=== PATIENT | male | born 2000 | race Two or more races ===

== ENCOUNTER 2020-07-01 08:55 | Emergency (ER) | payer OTHER, SELFPAY ==
--- NOTE | ~2020-07-01 | CT_ITS ---
EXAMINATION: CT abdomen pelvis w con DATE: 07/01/2020 10:27 INDICATION: Epigastric abdominal pain. TECHNIQUE: Computed tomography (CT) of the abdomen and pelvis was performed with 100 mL Omnipaque 350 intravenous contrast. Automated exposure control and iterative reconstruction technique were employe d. The dose-length product was 345.17 mGy-cm. COMPARISON: None. FINDINGS: The visualized portions of the lung bases are clear without pneumonia or pleural effusion. The heart size is normal. No pericardial effusion. The liver, gallbladder, spleen, pancreas, adrenal glands, and kidneys are normal. There are no dilated loops of bowel. The appendix is normal. There ar e no pathologically enlarged lymph nodes. There is no free intraperitoneal fluid. There is mild lumba r spondylosis. IMPRESSION: 1. No etiology for the patient's symptoms. Reviewed, dictated and finalized at location A. [facility]
[2020-07-01 09:04] VITALS: BP 144/57; PULSE 67; RESP 18; TEMP 36.3; O2SAT 100
--- NOTE | 2020-07-01 09:33 | ED.ABDPAIN ---
HPI - Abdominal Pain General Chief Complaint: Abdominal Pain <Tamica Sloan PA-C - Last Filed: 07/01/20 10:51> Stated Complaint: abd pain <Tamica Sloan PA-C - Last Filed: 07/01/20 10:51> Time Seen by Provider: 07/01/20 09:08 <Tamica Sloan PA-C - Last Filed: 07/01/20 10:51> Source: patient <ANGELIQUE Barros Last Filed: 07/01/20 10:51> Mode of arrival: ambulatory <Tamica Sloan PA-C - Last Filed: 07/01/20 10:51> Limitations: no limitations <Tamica Sloan PA-C - Last Filed: 07/01/20 10:51> History of Present Illness HPI narrative: This is a 20 year old male that presents to the ER for upper abdominal pain x5 days. Reports the pain is sharp and intermittent. No known alleviating or exacerbating factors. He has taken Advil and ibuprofen with little relief. Denies fever, chest pain, shortness of breath, or vomiting. <Tamica Sloan PA-C - Last Filed: 07/01/20 10:51> Related Data Home Medications: Home Medications Medication Instructions Recorded Confirmed prednisone 07/01/20 <Tamica Sloan PA-C - Last Filed: 07/01/20 10:51> Allergies/Adverse Reactions: Allergies Allergy/AdvReac Type Severity Reaction Status Date / Time No Known Allergies Allergy Verified 07/01/20 09:11 <Tamica Sloan PA-C - Last Filed: 07/01/20 10:51> Review of Systems Review of Systems: Narrative: CONSTITUTIONAL: Denies fever GASTROINTESTINAL: Reports abdominal pain. Denies nausea, vomiting, or diarrhea. <Tamica Sloan PA-C - Last Filed: 07/01/20 10:51> All systems reviewed & are unremarkable except as noted in HPI and below <Tamica Sloan PA-C - Last Filed: 07/01/20 10:51> [facility] Social History Social History: Social History (Updated 07/01/20 @ 09:35 by Tamica Sloan PA-C) Alcohol intake: current Substance use: current Substance use type: marijuana Gender identity (if verbalized by the patient): Male <Tamica Sloan PA-C - Last Filed: 07/01/20 10:51> Exam Narrative: Exam Narrative: GENERAL: Well-appearing, well-nourished, and in no acute distress. HEAD: Normocephalic, atraumatic. EYES: EOMI. CHEST: Clear to auscultation. No respiratory distress. No wheezes rales or rhonchi HEART: Regular rate and rhythm. No murmur heard. Normal peripheral pulses. ABDOMEN: Soft, nondistended, normal active bowel sounds. Mild tenderness to palpation in epigastrium, without guarding EXTREMITIES: Normal range of motion. No edema. SKIN: Warm, dry, no rash. NEURO: No focal deficits. Alert and oriented x3. PSYCH: Normal mood and affect <Tamica Sloan PA-C - Last Filed: 07/01/20 10:51> Course Vital Signs Vital signs: Vital Signs Temperature 97.3 F L 07/01/20 09:04 Pulse Rate 67 07/01/20 09:04 Respiratory Rate 18 07/01/20 09:04 Blood Pressure 144/57 H 07/01/20 09:04 Pulse Oximetry 100 07/01/20 09:04 Temperature 97.3 F L 07/01/20 09:04 Pulse Rate 63 07/01/20 10:55 Respiratory Rate 18 07/01/20 10:55 Blood Pressure 124/59 L 07/01/20 10:55 Pulse Oximetry 98 07/01/20 10:55 <Tamica Sloan PA-C - Last Filed: 07/01/20 10:51> Vital Signs Temperature 97.3 F L 07/01/20 09:04 Pulse Rate 67 07/01/20 09:04 Respiratory Rate 18 07/01/20 09:04 Blood Pressure 144/57 H 07/01/20 09:04 Pulse Oximetry 100 07/01/20 09:04 Temperature 97.3 F L 07/01/20 09:04 Pulse Rate 63 07/01/20 10:55 Respiratory Rate 18 07/01/20 10:55 Blood Pressure 124/59 L 07/01/20 10:55 Pulse Oximetry 98 07/01/20 10:55 <Mirna Berry MD - Last Filed: 07/01/20 17:11> MDM - Abdominal Pain MDM Narrative Medical decision making narrative: Patient presents to the ER for abdominal pain over the last 5 days. He is afebrile and nontoxic-appearing. CBC with mild leukocytosis to 10.4. Metabolic panel and lipase without concerning findings. UA significant for hematuria, no signs for infection.
[2020-07-01] MEDS: PANTOPRAZOLE SODIUM IV 40 MG VIAL IV PUSH (09:40)
[2020-07-01 09:49] LABS: Basophils Percent Auto 0.2 % (0.2-1.2); Hematocrit 43.3 % (42.0-52.0); Hemoglobin 14.2 g/dL (14.0-18.0); Immature Granulocyte Absolute 0.04 K/mm3 (0.00-0.031); Immature Granulocyte Percent A 0.4 % (0-0.5); Lymphocytes Absolute Auto 0.91 K/mm3 (0.9-3.2); Lymphocytes Percent Auto 8.7 % (18.3-44.2); Mean Corpuscular HGB Conc 32.8 g/dl (32-36); Mean Corpuscular Volume 82.5 fl (80-100); Mean Platelet Volume 10.7 fl (7.4-10.4); Monocytes Absolute Auto 0.1 K/mm3 (0.1-0.6); Monocytes Percent Auto 1.1 % (2.6-8.5); Neutrophils Absolute Auto 9.3 K/mm3 (1.3-6.7); Neutrophils Percent Auto 89.6 % (45.5-73.1); Platelet Count Result 282 k/mm3 (150-375); Red Blood Count 5.25 M/mm3 (4.6-6.20); Red Cell Distribution Width 12.5 % (11.5-14.5); White Blood Count 10.4 K/mm3 (4.5-10.0)
[2020-07-01 09:56] LABS: Add Urine Microscopic? YES; Appearance Urine Clear (Clear); Bacteria Urine Trace /hpf; Bilirubin Urine Negative (Negative); Blood Urine 2+ (Negative); Color Urine Yellow (Yellow); Glucose Urine UA Negative (Negative); Ketones Urine Negative (Negative); Leukocyte Esterase Ur Negative LEU/UL (Negative); Mucus Urine Rare /lpf; Nitrate Urine Negative (Negative); Protein Urine 2+ mg/dL (Negative); RBC Urine >75 /hpf (0-2); Squamous Epithelial Cell Urine Rare /hpf (Few); Urobilinogen Urine Negative mg/dL (<2.0); WBC Urine 0-3 /hpf
[2020-07-01 10:01] LABS: Alanine Aminotransferase 14 U/L (4-50); Albumin Level 4.4 g/dL (3.5-5.1); Alkaline Phosphatase 91 U/L (38-126); Anion Gap 6 mmol/L (8-16); Aspartate Amino Transferase 25 U/L (17-59); Bilirubin,Total 0.6 mg/dL (0.2-1.3); Blood Urea Nitrogen 12 mg/dL (9-20); Calcium 9.3 mg/dL (8.4-10.2); Carbon Dioxide 32 mmol/L (22-30); Chloride 104 mmol/L (98-107); Estimated CRCL calculation 122 ml/min; Estimated Glomerular Filt Rate > 60; Glucose 118 mg/dL (75-110); Lipase 81 U/L (23-300); Potassium 4.3 mmol/L (3.4-5.0); Sodium 142 mmol/L (137-145)
[2020-07-01 10:55] VITALS: BP 124/59; PULSE 63; RESP 18; O2SAT 98
== END 2020-07-01 11:00 | disposition home or self-care (01) ==
PROVIDERS: Physician Assistant; Emergency Provider General Practice
DX: K29.00 Acute gastritis without bleeding (principal); R31.21 Asymptomatic microscopic hematuria
CPT/HCPCS: 36415; 74177; 80053; 81001; 83690; 85025; 96365; 96375; 99284; C9113; J0131; Q9967

== ENCOUNTER 2020-09-22 10:12 | Emergency (ER) | payer OTHER, SELFPAY ==
[2020-09-22 10:19] VITALS: BP 140/71; PULSE 68; RESP 16; TEMP 36.4; O2SAT 100
--- NOTE | 2020-09-22 10:31 | ED.URI ---
HPI - URI/Sore Throat General Chief Complaint: Upper Respiratory Infection Stated Complaint: Sore Throat Time Seen by Provider: 09/22/20 10:25 Source: patient and RN notes reviewed Mode of arrival: ambulatory Limitations: no limitations History of Present Illness HPI Narrative: 20-year-old male presents to the [facility] with complaints of a sore throat he describes as burning for 3 days. Denies any fevers, nausea, cough, vomiting or diarrhea. No chest pain or abdominal pain. States it hurts more when he swallows. Has had chills without fever. MD elicited complaint: sore throat Related Data Allergies Allergy/AdvReac Type Severity Reaction Status Date / Time No Known Allergies Allergy Verified 09/22/20 10:33 Review of Systems Review of Systems: All systems reviewed & are unremarkable except as noted in HPI and below Constitutional: Constitutional: Reports as per HPI, Reports chills and Denies fever(s) Eyes: Eyes: Reports no additional eye complaints ENT: Reports as per HPI and Reports sore throat Cardiovascular: Cardiovascular: Reports no additional cardiovascular complaints and Denies chest pain Respiratory: Respiratory: Reports no additional respiratory complaints, Denies cough, Denies dyspnea and Denies wheezing Gastrointestinal: Gastrointestinal: Reports no additional gastrointestinal complaints, Denies abdominal pain, Denies nausea and Denies vomiting Musculoskeletal: Musculoskeletal: Reports no additional musculoskeletal complaints, Denies back pain, Denies myalgias, Denies joint swelling and Denies muscle cramps Integumentary/Breasts: Skin/Breast: Reports system reviewed and no additional complaints, except as docu and Denies rash Neurologic: Reports system reviewed and no additional complaints, except as documented, Denies dizziness, Denies syncope, Denies headache(s), Denies numbness and Denies weakness Psychiatric: Psychiatric: Reports no additional psychiatric complaints PMFSH Social History Social History Alcohol intake: current Substance use: current Substance use type: marijuana Gender identity (if verbalized by the patient): Male Comments At the time of my signature, I reviewed and agree with the nursing past medical, surgical, social, and family history. There is no relevant family history pertinent to the patient complaint. Exam Const: General: healthy appearing, no acute distress and alert Nutritional Appearance: well nourished Orientation/consciousness: patient oriented x3 Limitations: no limitations HENMT: Head: normal to inspection Ears: external ears normal and TM's normal bilaterally General nose exam: Normal nares present and no nasal discharge noted Face and sinus: normal facial exam and sinuses nontender Mouth: Yes moist mucous membranes Throat: uvula midline Other: Tonsils enlarged, red Eyes: Pupils: Equal, round and reactive pupils present Neck: Neck: normal visual inspection, no lymphadenopathy, no meningeal signs and no lymphadenopathy noted Chest: Chest palpation & inspection: normal inspection of the chest Resp: Effort & Inspection: normal respiratory effort and no use of accessory muscles Auscultation: clear to auscultation bilaterally, no crackles, no rales, no rhonchi and no wheezes Cardio: Rate: regular rate Rhythm: regular rhythm Back/Spine/Pelvis: Back: no CVA tenderness Skin: General skin exam: normal color Rashes: no rashes Neuro: General: patient oriented x3, moves all extremities, no meningeal signs and no focal motor deficits Speech: normal speech Gait exam (Neuro): Normal gait present Extrem: General: normal to inspection Psych: Appearance: grossly normal and well kempt Mental Status: mental status grossly normal Affect: normal affect Attitude: cooperative Thought content: Yes Normal thought content present Course Vital Signs Vital signs: Vital Signs Temperature 97.5 F L 09/22/20
== END 2020-09-22 10:41 | disposition home or self-care (01) ==
PROVIDERS: Emergency Provider Nurse Practitioner
DX: J02.0 Streptococcal pharyngitis (principal)
CPT/HCPCS: 87880; 99213; G0463

== ENCOUNTER 2020-12-10 13:25 | Emergency (ER) | payer OTHER, SELFPAY ==
[2020-12-10 13:40] VITALS: BP 110/55; PULSE 78; RESP 16; TEMP 37; O2SAT 98
--- NOTE | 2020-12-10 13:58 | ED.URI ---
HPI - URI/Sore Throat General Chief Complaint: Upper Respiratory Infection Stated Complaint: sob/headache Time Seen by Provider: 12/10/20 13:55 Source: patient and RN notes reviewed Mode of arrival: ambulatory Limitations: no limitations History of Present Illness HPI Narrative: 20-year-old male presents with concern for intermittent shortness of breath, headache. Reports when he does every day activities it feels hard to take a full breath. He denies any chest pain, cough, wheezing. Denies history of asthma. Denies rhinorrhea, nasal congestion, sore throat, body aches, chills, sweats, fever. Reports he needs a Covid test for work. MD elicited complaint: cough Related Data Home Medications Medication Instructions Recorded Confirmed No Home Medications 12/10/20 12/10/20 Allergies Allergy/AdvReac Type Severity Reaction Status Date / Time No Known Allergies Allergy Verified 09/22/20 10:33 Review of Systems Review of Systems: CONSTITUTIONAL: Denies malaise, chills, sweats, or fever. EYES: Denies visual changes, redness, or discharge. ENT: Denies rhinorrhea, congestion, sinus pain, otalgia and sore throat. CARDIOVASCULAR: Denies chest pain, palpitations, or edema. RESPIRATORY: Reports cough. Reports dyspnea. GASTROINTESTINAL: Denies abdominal pain, nausea, vomiting, diarrhea SKIN: Denies rash or itching. MUSCULOSKELETAL: Denies myalgia. NEUROLOGIC: Reports headache. All systems reviewed & are unremarkable except as noted in HPI and below PMFSH Social History Social History Alcohol intake: current Substance use: current Substance use type: marijuana Gender identity (if verbalized by the patient): Male Comments At time of signature, agree with nursing past medical, surgical, social and family history. There is no relevant family history pertinent to the presenting complaint Exam Narrative: GENERAL: Well-appearing, well-nourished, and in no acute distress. HEAD: Normocephalic EYES: PERRLA, conjunctivae clear ENT: Nares clear. Mucous membranes moist. TM pearly will with sharp light reflex bilaterally; no tragal tenderness. Oropharynx not erythematous without lesions. Tonsils not enlarged and without exudate, no drooling, no hoarseness, no trismus, uvula midline. NECK: Supple. No lymphadenopathy CHEST: Clear to auscultation, breath sounds equal. No wheezing, rhonchi, rales, or stridor. No respiratory distress, speaks in full sentences. HEART: Regular rate and rhythm. No murmur heard. SKIN: Warm, dry, no rash. NEURO: Alert and oriented x3. PSYCH: Normal mood and affect Course Course Emergency Course: Patient is aware of diagnosis, understands and agrees to treatment plan. Anticipatory guidance given. Patient agrees to follow-up as directed and is aware of reasons to seek care at the emergency department. Portions of this record may have been created with voice recognition software Vital Signs Vital signs: Vital Signs Temperature 98.6 F 12/10/20 13:40 Pulse Rate 78 12/10/20 13:40 Respiratory Rate 16 12/10/20 13:40 Blood Pressure 110/55 L 12/10/20 13:40 Pulse Oximetry 98 12/10/20 13:40 Temperature 98.6 F 12/10/20 13:40 Pulse Rate 78 12/10/20 13:40 Respiratory Rate 16 12/10/20 13:40 Blood Pressure 110/55 L 12/10/20 13:40 Pulse Oximetry 98 12/10/20 13:40 Reviewed. MDM - URI/Sore Throat MDM Narrative Medical decision making narrative: Differential diagnosis considered: Cunningham virus, strep pharyngitis, allergic rhinitis, upper respiratory tract infection, sinusitis, rhinosinusitis, nasopharyngitis. viral pharyngitis, otitis media, otitis externa, pneumonia, bronchitis, viral cough syndrome, viral syndrome, and influenza. Exam findings show no acute concerns or changes; patient is non-toxic appearing and is in no distress. Patient is appropriate for outpatient treatment and follow-up. Lab Data Attestation: I reviewed the p
[2020-12-11 20:10] LABS: SARS-CoV-2 RNA PCR Negative
== END 2020-12-10 14:14 | disposition home or self-care (01) ==
PROVIDERS: Emergency Provider Nurse Practitioner
DX: R06.02 Shortness of breath (principal); Z20.822 Contact with and (suspected) exposure to COVID-19
CPT/HCPCS: 87426; 99213; C9803; G0463; U0003; U0005

== ENCOUNTER 2021-08-28 23:37 | Emergency (ER) | payer OTHER, SELFPAY ==
[2021-08-28 23:41] VITALS: BP 153/73; PULSE 70; RESP 17; TEMP 36.1; O2SAT 98
--- NOTE | 2021-08-29 00:34 | PC.NURSE ---
Called patient to go to room, no answer and not seen in the waiting room.
--- NOTE | 2021-08-29 00:51 | PC.NURSE ---
Patient called again for room. No answer and not seen in waiting room.
== END 2021-08-29 00:51 | disposition left against medical advice (07) ==
LOC: ANHED 08-29 00:54
DX: S61.011A Laceration without foreign body of right thumb without damage to nail, initial encounter (principal)
CPT/HCPCS: 99199

== ENCOUNTER 2021-12-01 15:12 | Outpatient (CLI) | payer OTHER, SELFPAY ==
--- NOTE | 2021-12-04 15:36 | P.PCNHOL_ITS ---
Holter/Event Monitor Holter/Event Monitor Date of procedure: 12/04/21 Holter/Event Procedure: 48 Hr Holter Monitor Diagnosis: Palpitations Indications: Palpitations Image/Tracing Quality: Acceptable Finding: Underlying rhythm is sinus with an average heart rate of 69 beats per minute minimum 42 beats per minute occurring at 2:18 a.m. and maximum 152 beats per minute occurring at 7:10 a.m.. There is no ventricular ectopy noted throughout the study. No atrial fibrillation, atrial flutter, prolonged pauses or high- grade AV blocks. Rare premature atrial contractions totaling 35 with 1 atrial pair noted. Longest RR interval 1.6 seconds occurring at 1:49 a.m.. No symptoms of return to in conjunction with this study. Conclusion: Underlying sinus rhythm with no ventricular ectopy and rare premature atrial contractions. No prolonged pauses, high-grade AV blocks, atrial fibrillation or atrial flutter. No symptoms returned in conjunction with the study.
== END 2021-12-01 15:13 | disposition home or self-care (01) ==
LOC: ANHCARD 15:14
PROVIDERS: PCP Physician Assistant; Visit Provider Physician Assistant
DX: R00.2 Palpitations (principal)
CPT/HCPCS: 93225; 93226

== ENCOUNTER 2022-03-08 15:52 | Emergency (ER) | payer OTHER, SELFPAY ==
[2022-03-08 15:58] VITALS: BP 136/57; PULSE 74; RESP 16; TEMP 36.6; O2SAT 99
--- NOTE | 2022-03-08 19:21 | PC.NURSE ---
no answer at triage
== END 2022-03-08 19:21 | disposition left against medical advice (07) ==
LOC: ANHED 19:48
PROVIDERS: Emergency Provider Emergency Medicine; PCP Physician Assistant
DX: Z11.3 Encounter for screening for infections with a predominantly sexual mode of transmission (principal)
CPT/HCPCS: 99199

== ENCOUNTER 2024-01-17 19:46 | Emergency (ER) | payer OTHER, SELFPAY ==
[2024-01-17 19:53] VITALS: BP 140/83; PULSE 77; RESP 16; TEMP 37; O2SAT 100
--- NOTE | 2024-01-17 20:26 | ED.BACK ---
HPI - Back Pain/Injury General Chief Complaint: Back Pain/Injury Stated Complaint: Headaches/Back Pain Time Seen by Provider: 01/17/24 19:55 Source: patient Mode of arrival: ambulatory Limitations: no limitations History of Present Illness HPI Narrative: Reid is a 23-year-old male patient presenting to the clinic today with complaints of left-sided upper back pain, left neck pain, and headache this been going on for the past few days. He has intermittently taken ibuprofen for his pain however he says is not improving and he is waking up with headaches. 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 Related Data Allergies Allergy/AdvReac Type Severity Reaction Status Date / Time No Known Allergies Allergy Verified 01/17/24 19:50 Review of Systems Review of Systems: Pertinent positives per HPI. Patient denies any fever, chills, rash, headache, visual changes, dizziness, cough, runny nose, sore throat, shortness of breath, chest pain, palpitations, nausea, vomiting, diarrhea, constipation, abdominal pain, or any urinary issues. PMFSH Social History Social History Alcohol intake: current Substance use: current Substance use type: marijuana Gender identity (if verbalized by the patient): Male Comments At the time of my signature, I reviewed and agree with the nursing past medical, surgical, social, and family history. There is no relevant family history pertinent to the patient complaint. Exam Narrative: General: Well-developed, well nourished, in no apparent distress Head: Normocephalic, atraumatic Eyes: Pupils equally round and reactive to light bilaterally, EOM intact, sclera and conjunctive clear, no discharge, lids normal Ears: TMs intact and clear, ear canals clear, no drainage, grossly hearing normal. Nose: Nares patent, no discharge, no inflammation, no sinus tenderness. Mouth: Oropharynx without lesions or masses, good dentition, MMM. Neck: Supple, trachea midline, no enlargement of anterior or posterior cervical nodes, no thyroid masses or goiter palpable. No meningeal signs Cardio: Regular rate and rhythm, s1 and s2 normal, no murmur appreciated. Resp: Clear to auscultation bilaterally anteriorly and posteriorly, no rhonchi, rales, wheezing or rubs Musculoskeletal: No deformity, tender to palpation over the left rhomboid musculature, over the left posterior lateral cervical musculature, and feeling as though there was a tight band around his forehead, grossly normal range of motion, muscle strength strong and equal, peripheral pulse strong, no edema, no cyanosis, normal gait and station Course Course Emergency Course: Portions of this record may have been created with voice recognition software. Level of Care: Express Care Visit Vital Signs Vital signs: Vital Signs Temperature 37.0 C 01/17/24 19:53 Pulse Rate 77 01/17/24 19:53 Respiratory Rate 16 01/17/24 19:53 Blood Pressure 140/83 01/17/24 19:53 Pulse Oximetry 100 01/17/24 19:53 Oxygen Delivery Room Air 01/17/24 19:53 Temperature 37.0 C 01/17/24 19:53 Pulse Rate 77 01/17/24 19:53 Respiratory Rate 16 01/17/24 19:53 Blood Pressure 140/83 01/17/24 19:53 Pulse Oximetry 100 01/17/24 19:53 Oxygen Delivery Room Air 01/17/24 19:53 Vital signs reviewed MDM - Back Pain/Injury MDM Narrative Medical decision making narrative: At the time of visit patient is resting comfortably on the exam table. Patient appears to be nontoxic. Plan: I suspect patient has muscle strain with a tension headache. Prescription for naproxen and baclofen was sent to the pharmacy. Supportive measures were discussed with the patient and they voiced understanding discharge instructions and agrees to treatment plan. Return precautions reviewed Differential Diagnosis Differential diagnosis: Likely thoracic back pain and other (Muscle strain, te
== END 2024-01-17 20:07 | disposition home or self-care (01) ==
PROVIDERS: Emergency Provider Nurse Practitioner Family
DX: S29.012A Strain of muscle and tendon of back wall of thorax, initial encounter (principal); X58.XXXA Exposure to other specified factors, initial encounter; R51.9 Headache, unspecified; M54.2 Cervicalgia; F12.90 Cannabis use, unspecified, uncomplicated
CPT/HCPCS: 99213; G0463

== ENCOUNTER 2024-03-20 09:43 | Emergency (ER) | payer OTHER, SELFPAY ==
[2024-03-20 09:53] VITALS: BP 126/52; PULSE 74; RESP 18; TEMP 37; O2SAT 100
[2024-03-20 10:24] LABS: Add Urine Microscopic? YES; Appearance Urine Turbid (Clear); Bacteria Urine None Seen /hpf; Blood Urine 2+ (Negative); Color Urine Red (Yellow); Ketones Urine Negative (Negative); Leukocyte Esterase Ur 2+ LEU/UL (Negative); Need Manual Microscopic Reviewed; Specific Grav Ur 1.016 (1.001-1.035); Squamous Epithelial Cell Urine None Seen /hpf (Few); Urobilinogen Urine 0.2 mg/dL (<2.0); WBC Urine 21-50 /hpf (0-3)
[2024-03-20 10:25] LABS: Glucose Urine UA Negative (Negative); RBC Urine >100 /hpf (0-2)
--- NOTE | 2024-03-20 10:34 | ED_ITS ---
HPI - Male Genitourinary General Chief complaint: Urogenital-Male Stated complaint: hematuria Time Seen by Provider: 03/20/24 10:33 Source: patient Mode of arrival: ambulatory Limitations: no limitations History of Present Illness [facility] Narrative: This is a 23-year-old male who presents to the ED for chief complaint of hematuria x4 days. Reports bright red blood passing through the urine. Patient reports he went to urgent care and had urine culture drawn but states there was no growth. No history of kidney stones. States he is really not having any dysuria, abdominal or flank pain. Denies specific concern for STD as he has not had sexual intercourse in 9 months. Related Data Allergies Allergy/AdvReac Type Severity Reaction Status Date / Time No Known Allergies Allergy Verified 03/20/24 09:43 Review of Systems Review of Systems: All systems as dictated in [facility] Social History Social History Alcohol intake: current Substance use: current Substance use type: marijuana Gender identity (if verbalized by the patient): Male Exam Narrative: GENERAL: Well-appearing, well-nourished, and in no acute distress. HEAD: Normocephalic, atraumatic. EYES: PERRLA and EOMI. ENT: Nares clear, no rhinorrhea or epistaxis. Mucous membranes moist. Oropharynx without tonsillar hypertrophy exudate or other lesions. NECK: Supple. No adenopathy or masses. CHEST: No respiratory distress. Clear to auscultation. No wheezes rales or rhonchi HEART: Regular rate and rhythm. No murmur heard. Normal peripheral pulses. ABDOMEN: Soft, nontender, nondistended, normal active bowel sounds. MSK: Normal range of motion. No edema. SKIN: Warm, dry, no rash. NEURO: Alert and oriented x4. No focal deficits. PSYCH: Normal mood and affect. Course Vital Signs Vital signs: Vital Signs Temperature 98.6 F 03/20/24 09:53 Pulse Rate 74 03/20/24 09:53 Respiratory Rate 18 03/20/24 09:53 Blood Pressure 126/52 L 03/20/24 09:53 Pulse Oximetry 100 03/20/24 09:53 Oxygen Delivery Room Air 03/20/24 09:53 Temperature 98.6 F 03/20/24 09:53 Pulse Rate 74 03/20/24 09:53 Respiratory Rate 18 03/20/24 09:53 Blood Pressure 126/52 L 03/20/24 09:53 Pulse Oximetry 100 03/20/24 09:53 Oxygen Delivery Room Air 03/20/24 09:53 MDM - Male Genitourinary MDM Narrative Medical decision making narrative: This is a 23-year-old male who presents to the ED for chief complaint of hematuria x4 days. No urinary retention. Vitals are normal.. Exam is benign overall. No flank tenderness or abdominal pain. Lab work regarding CBC, CMP are unremarkable. Urinalysis does show 2+ leuk esterase, greater than 100 RBCs, 21-50 whites. No concerns for STDs today, but willing to have labs drawn. RPR, HIV, Trichomonas are negative. Chlamydia and gonorrhea unable to be tested due to the hematuria. Patient is feeling fine on re-evaluation. He feels ready to go home and will follow-up with urology on this painless hematuria. Patient will be discharged in stable condition. Supportive measures discussed and return precautions given. Patient is understanding and agreeable with plan for discharge with PCP/urology follow-up. Lab Data 03/20/24 11:12 03/20/24 11:12 Labs: Lab Results 03/20/24 03/20/24 Range/Units 10:00 11:12 WBC 5.2 (4.5-10.0) K/mm3 RBC 5.25 (4.6-6.20) M/mm3 Hgb 14.6 (14.0-18.0) g/dL Hct 44.6 (42.0-52.0) % MCV 85.0 (80-100) fl MCH 27.8 (26-34) pg MCHC 32.7 (32-36) g/dl RDW 13.9 (11.5-14.5) % Plt Count 214 (150-375) k/mm3 MPV 10.8 H (7.4-10.4) fl Immature Gran % (Auto) 0.2 (0-0.5) % Neut % (Auto) 68.5 (45.5-73.1) % Lymph % (Auto) 24.9 (18.3-44.2) % [place] % (Auto) 5.8 (2.6-8.5) % Eos % (Auto) 0.4 (0-4.4) % Baso % (Auto) 0.2 (0.2-1.2) % Lymph # (Auto) 1.29 (0.9-3.2) K/mm3 [place] # (Auto) 0.3 (0.1-0.6) K/mm3 Eos # (Auto) 0.0 (0-0.3) K/mm3 Baso # (Auto) 0.0 (0.0-0.1) K/mm3 Abs Immat Gran (auto) 0.01 (0.00-0.031) K/mm3 Absolute Neuts (auto) 3.6 (1.3-6.7) K/mm3 Absolute Nucleated RBC 0.000 (0.0-0.012) K/mm3 Nucleated RBC % 0.0 (0.0-0.2) % PT 14.3 (11.1-14.7) Seconds INR 1.1 APTT 29.9 (22.3-36.8) Seconds Sodium 141 (137-145) mmol/L Potassium 4.7 (3.4-5.0) mmol/L Chloride 106 (98-107) mmol/L Carbon Dioxide 31 H (22-30) mmol/L Anion Gap 4 (4-12) mmol/L BUN 16 (9-20) mg/dL Creatinine 0.90 (0.7-1.3) mg/dL Estim Creat Clear Calc 123 ml/min Estimated GFR > 60 (59 - ) Glucose 84 (65-110) mg/dL Calcium 9.2 (8.4-10.2) mg/dL Total Bilirubin 0.6 (0.2-1.3) mg/dL AST 51 (17-59) U/L ALT 40 (6-50) U/L Alkaline Phosphatase 68 (38-126) U/L Total Protein 8.0 (6.3-8.2) g/dL Albumin 4.6 (3.5-5.1) g/dL Urine Color Red H (Yellow) Urine Appearance Turbid H (Clear) Urine pH 6.0 (5.0-9.0) Ur Specific [place] 1.016 (1.001-1.035) Urine Protein TNP Urine Glucose (UA) Negative (Negative) mg/dL Urine Ketones Negative (Negative) mg/dL Ur Blood (Man) 2+ H (Negative) Urine Nitrate TNP Urine Bilirubin TNP Urine Urobilinogen 0.2 (<2.0) mg/dL Add Ur Microanalysis Reviewed Leukocyte Esterase Rfl 2+ H (Negative) JESUS/UL Urine RBC >100 H (0-2) /hpf Urine WBC 21-50 H (0-3) /hpf Ur Squamous Epith Cells None seen (Few) /hpf Urine Bacteria None seen /hpf Urine Casts 3-5 RPR Non-reactive (NonReactive) HIV 1&2 Ab/P24 Ag 4thGn Negative (Negative) T. vaginalis (PCR) Not detected (NOT DETECTE) Discharge Plan Discharge Clinical Impression: Urinary tract infection Qualifiers: Urinary tract infection type: acute cystitis Hematuria presence: with hematuria Qualified Code(s): N30.01 - Acute cystitis with hematuria Patient Disposition: Home, Self-Care Condition: Stable Instructions: Antibiotic Form, Urinary Tract Infection in Men (ED) Additional Instructions: Your exam today does show concern for possible UTI. Please take antibiotics as prescribed. Follow-up with urology for closer evaluation on the blood in the urine. If you have any new or worsening symptoms please return to the ER for further evaluation. Prescriptions: New ciprofloxacin HCl [Cipro] 500 mg tablet 500 mg PO Q12H Qty: 14 0RF No Action baclofen 10 mg tablet 10 mg PO TID PRN (Reason: muscle spasm) 7 Days Qty: 21 0RF naproxen 500 mg tablet 500 mg PO BID PRN (Reason: pain) 7 Days Qty: 14 0RF Follow-up/Referrals: Young Nicole MD [Physician] - PHYSICIAN,NET TECHNICAL ARCHITECT [Primary Care Provider] - Stand Alone Forms: Work/School Release IP Time of Disposition: 12:05
[2024-03-20 11:25] LABS: Basophils Percent Auto 0.2 % (0.2-1.2); Eosinophils Percent Auto 0.4 % (0-4.4); Hematocrit 44.6 % (42.0-52.0); Hemoglobin 14.6 g/dL (14.0-18.0); Immature Granulocyte Absolute 0.01 K/mm3 (0.00-0.031); Immature Granulocyte Percent A 0.2 % (0-0.5); Lymphocytes Absolute Auto 1.29 K/mm3 (0.9-3.2); Lymphocytes Percent Auto 24.9 % (18.3-44.2); Mean Corpuscular HGB Conc 32.7 g/dl (32-36); Mean Corpuscular Hemoglobin 27.8 pg (26-34); Mean Platelet Volume 10.8 fl (7.4-10.4); Monocytes Absolute Auto 0.3 K/mm3 (0.1-0.6); Monocytes Percent Auto 5.8 % (2.6-8.5); Neutrophils Absolute Auto 3.6 K/mm3 (1.3-6.7); Neutrophils Percent Auto 68.5 % (45.5-73.1); Platelet Count Result 214 k/mm3 (150-375); Red Blood Count 5.25 M/mm3 (4.6-6.20); Red Cell Distribution Width 13.9 % (11.5-14.5); White Blood Count 5.2 K/mm3 (4.5-10.0)
[2024-03-20 11:38] LABS: INR 1.1; Prothrombin Time 14.3 Seconds (11.1-14.7)
[2024-03-20 11:39] LABS: Partial Thromboplastin Time 29.9 Seconds (22.3-36.8)
[2024-03-20 11:42] LABS: Alanine Aminotransferase 40 U/L (6-50); Albumin Level 4.6 g/dL (3.5-5.1); Alkaline Phosphatase 68 U/L (38-126); Anion Gap 4 mmol/L (4-12); Aspartate Amino Transferase 51 U/L (17-59); Bilirubin,Total 0.6 mg/dL (0.2-1.3); Blood Urea Nitrogen 16 mg/dL (9-20); Calcium 9.2 mg/dL (8.4-10.2); Carbon Dioxide 31 mmol/L (22-30); Chloride 106 mmol/L (98-107); Estimated CRCL calculation 123 ml/min; Estimated Glomerular Filt Rate > 60; Glucose 84 mg/dL (65-110); Potassium 4.7 mmol/L (3.4-5.0); Sodium 141 mmol/L (137-145)
[2024-03-20 12:24] LABS: HIV 1/2 Ab P24 Ag Result Negative (Negative)
[2024-03-20 12:55] LABS: Rapid Plasma Reagin Non-Reactive (NonReactive)
[2024-03-20 13:05] LABS: Trichomonas Vag PCR NOT DETECTED (NOT DETECTE)
== END 2024-03-20 12:15 | disposition home or self-care (01) ==
PROVIDERS: Emergency Medicine; Emergency Provider Physician Assistant
DX: N30.01 Acute cystitis with hematuria (principal)
CPT/HCPCS: 36415; 80053; 81001; 85025; 85610; 85730; 86592; 86703; 87086; 87661; 99283; G0432

== ENCOUNTER 2024-03-26 20:38 | Emergency (ER) | payer OTHER, SELFPAY ==
[2024-03-26 21:02] VITALS: BP 146/81; PULSE 102; RESP 15; TEMP 36.6; O2SAT 100
[2024-03-26 21:28] LABS: Bacteria Urine None Seen /hpf; Need Manual Microscopic Reviewed; Non Pathogenic Casts 0-2; Squamous Epithelial Cell Urine Few /hpf (Few); WBC Urine 51-100 /hpf (0-3)
[2024-03-26 21:29] LABS: RBC Urine >100 /hpf (0-2)
[2024-03-26 21:30] LABS: Appearance Urine Turbid (Clear); Color Urine Red (Yellow)
[2024-03-26 21:33] LABS: Add Urine Microscopic? YES
--- NOTE | 2024-03-27 01:59 | PC.NURSE ---
Pt was called to go back to a room and did not show up.
== END 2024-03-27 02:17 | disposition left against medical advice (07) ==
LOC: ANHED 03-27 02:15
PROVIDERS: Emergency Provider Emergency Medicine
DX: R31.9 Hematuria, unspecified (principal)
CPT/HCPCS: 81001; 87086; 99199

== ENCOUNTER 2024-03-27 19:04 | Emergency (ER) | payer OTHER, SELFPAY ==
--- NOTE | ~2024-03-27 | CT_ITS ---
EXAMINATION: CT abdomen pelvis wo con DATE: 03/27/2024 23:47 INDICATION: hematuria TECHNIQUE: Computed tomography (CT) of the abdomen and pelvis was performed with intravenous contrast . Automated exposure control and iterative reconstruction technique were employed. The dose-length pr oduct was 322.83 mGy-cm. COMPARISON: 07/01/2020. FINDINGS: Lower thorax: Unremarkable Liver: Normal. Biliary/Gallbladder: Gallbladder is normal. No bile duct dilation. Pancreas: No mass or duct dilation. Spleen: Normal. Adrenals:No mass. Kidneys: No suspicious mass, obstructing stone, or hydronephrosis. GI tract: No small or large bowel dilation. Appendix is not confidently identified due to the paucity of abdominal fat, however no inflammatory process detected in the right lower quadrant. Mesentery/Peritoneum: No ascites, mass, or free air. Retroperitoneum: No mass. Pelvis: Pelvic organs are within normal limits. Soft Tissues: Soft tissues and body wall unremarkable. Bones: No acute osseous finding. IMPRESSION: No acute abdominopelvic process detected. Reviewed, dictated and finalized at location K. [employer]PERATOR
[2024-03-27 19:18] VITALS: BP 140/68; PULSE 96; RESP 17; TEMP 36.8; O2SAT 100
[2024-03-27 22:33] LABS: Bacteria Urine None Seen /hpf; Non Pathogenic Casts 0-2; RBC Urine >100 /hpf (0-2); Squamous Epithelial Cell Urine None Seen /hpf (Few)
[2024-03-27 22:37] LABS: Add Urine Microscopic? YES; Appearance Urine Turbid (Clear); Bilirubin Urine 1+ (Negative); Blood Urine 3+ (Negative); Color Urine Red (Yellow); Glucose Urine UA Negative (Negative); Ketones Urine 2+ mg/dL (Negative); Leukocyte Esterase Ur 2+ LEU/UL (Negative); Nitrate Urine Negative (Negative); Protein Urine 2+ mg/dL (Negative); Specific Grav Ur 1.016 (1.001-1.035); Urobilinogen Urine 0.2 mg/dL (<2.0); pH Urine 5.5 (5.0-9.0)
[2024-03-27 23:46] LABS: Basophils Percent Auto 0.5 % (0.2-1.2); Eosinophils Percent Auto 0.3 % (0-4.4); Hematocrit 41.5 % (42.0-52.0); Hemoglobin 14.1 g/dL (14.0-18.0); Immature Granulocyte Absolute 0.02 K/mm3 (0.00-0.031); Immature Granulocyte Percent A 0.3 % (0-0.5); Lymphocytes Absolute Auto 2.05 K/mm3 (0.9-3.2); Lymphocytes Percent Auto 26.6 % (18.3-44.2); Mean Corpuscular Hemoglobin 28.1 pg (26-34); Mean Corpuscular Volume 82.8 fl (80-100); Mean Platelet Volume 10.3 fl (7.4-10.4); Monocytes Absolute Auto 0.6 K/mm3 (0.1-0.6); Monocytes Percent Auto 7.5 % (2.6-8.5); Neutrophils Percent Auto 64.8 % (45.5-73.1); Platelet Count Result 225 k/mm3 (150-375); Red Blood Count 5.01 M/mm3 (4.6-6.20); Red Cell Distribution Width 13.9 % (11.5-14.5); White Blood Count 7.7 K/mm3 (4.5-10.0)
[2024-03-27 23:55] LABS: Anion Gap 5 mmol/L (4-12); Blood Urea Nitrogen 18 mg/dL (9-20); Calcium 9.1 mg/dL (8.4-10.2); Carbon Dioxide 28 mmol/L (22-30); Chloride 108 mmol/L (98-107); Estimated CRCL calculation 111 ml/min; Estimated Glomerular Filt Rate > 60; Glucose 67 mg/dL (65-110); Potassium 4.5 mmol/L (3.4-5.0); Sodium 141 mmol/L (137-145)
--- NOTE | 2024-03-28 00:52 | ED.MALEGU ---
HPI - Male Genitourinary General Chief complaint: Urogenital-Male Stated complaint: hematuria Time Seen by Provider: 03/27/24 23:18 Source: patient Mode of arrival: ambulatory Limitations: no limitations History of Present Illness HPI Narrative: This is a 23-year-old male that presents to the emergency department for hematuria. Reports this has been worsening over the last couple of weeks. He has been evaluated for this in the ER and was started on oral antibiotics for a UTI. He has finished these antibiotics and continues to have blood in his urine. He is now experiencing some blood clots in his urine. He tried to make a follow-up appointment with Urology, but they did not take his insurance. Related Data Allergies Allergy/AdvReac Type Severity Reaction Status Date / Time No Known Allergies Allergy Verified 03/26/24 20:39 Review of Systems Review of Systems: CONSTITUTIONAL: Denies fever GASTROINTESTINAL: Denies abdominal pain, nausea, vomiting GENITOURINARY: Reports hematuria. Denies dysuria All systems reviewed & are unremarkable except as noted in HPI and below PMFSH Past Medical History Medical History (Updated 03/28/24 @ 02:14 by Tamica Sloan PA-C) No active medical problems Social History Social History Alcohol intake: current Substance use: current Substance use type: marijuana Gender identity (if verbalized by the patient): Male Exam Narrative: GENERAL: Well-appearing, well-nourished, and in no acute distress. HEAD: Normocephalic, atraumatic. EYES: EOMI. CHEST: No respiratory distress. HEART: Regular rate ABDOMEN: Soft, nontender, nondistended, normal active bowel sounds. EXTREMITIES: Normal range of motion. No edema. SKIN: Warm, dry, no rash. NEURO: No focal deficits. Alert and oriented x3. PSYCH: Normal mood and affect Course Course Emergency Course: patient updated on his workup and agrees with plan of care Consultations Consultation #1: Spoke with Urology about patient and workup. Agree with need for outpatient follow up for likely a cystoscopy. He believes [facility] in [place] takes patient's insurance Date: 03/28/24 Vital Signs Vital signs: Vital Signs Temperature 98.2 F 03/27/24 19:18 Pulse Rate 96 03/27/24 19:18 Respiratory Rate 17 11/26/24 19:18 Blood Pressure 140/68 03/27/24 19:18 Pulse Oximetry 100 03/27/24 19:18 Temperature 98.2 F 03/27/24 19:18 Pulse Rate 96 03/27/24 19:18 Respiratory Rate 17 03/27/24 19:18 Blood Pressure 140/68 03/27/24 19:18 Pulse Oximetry 100 03/27/24 19:18 MDM - Male Genitourinary MDM Narrative Medical decision making narrative: Patient presents to the emergency department for hematuria. Ongoing over the last couple of weeks. Was treated with an oral antibiotic for possible UTI without relief. He is afebrile and nontoxic appearing. Cbc without leukocytosis. Kidney function is normal. Urine once again does show greater than 100 red blood cells as well as 11-20 white blood cells. This will be sent for culture. CT abdomen and pelvis without acute findings. Spoke with Urology about patient and workup. Agree with need for outpatient follow up for likely a cystoscopy. He believes [facility] in [place] takes patient's insurance. When patient was recently in the ER they were unable to perform chlamydia and gonorrhea test due to the amount of red blood cells. Patient will be presumptively treated for this and is to follow-up with urology. He was given warnings to return to the ER Differential Diagnosis Differential diagnosis: Likely urethritis and other (kidney stone, kidney mass, bladder mass) Lab Data Attestation: I reviewed the patient's lab results. 03/27/24 23:38 03/27/24 23:38 Labs: Lab Results 03/27/24 03/27/24 Range/Units 20:56 23:38 WBC 7.7 (4.5-10.0) K/mm3 RBC 5.01 (4.6-6.20) M/mm3 Hgb 14.1 (14.0-18.0) g/dL Hct 41.5 L (42.0-52.0) % MCV 82.8 (80-100) fl MCH 28.1 (26-34) pg MCHC 34.0 (32-36) g/dl RDW 13.9 (11.5-14.5) % Plt Count 225 (150-375) k/mm3 MPV 10.3 (7.4-10.4) fl Immature Gran % (Auto) 0.3 (0-0.5) % Neut % (Auto) 64.8 (45.5-73.1) % Lymph % (Auto) 26.6 (18.3-44.2) % [place] % (Auto) 7.5 (2.6-8.5) % Eos % (Auto) 0.3 (0-4.4) % Baso % (Auto) 0.5 (0.2-1.2) % Lymph # (Auto) 2.05 (0.9-3.2) K/mm3 [place] # (Auto) 0.6 (0.1-0.6) K/mm3 Eos # (Auto) 0.0 (0-0.3) K/mm3 Baso # (Auto) 0.0 (0.0-0.1) K/mm3 Abs Immat Gran (auto) 0.02 (0.00-0.031) K/mm3 Absolute Neuts (auto) 5.0 (1.3-6.7) K/mm3 Absolute Nucleated RBC 0.000 (0.0-0.012) K/mm3 Nucleated RBC % 0.0 (0.0-0.2) % Sodium 141 (137-145) mmol/L Potassium 4.5 (3.4-5.0) mmol/L Chloride 108 H (98-107) mmol/L Carbon Dioxide 28 (22-30) mmol/L Anion Gap 5 (4-12) mmol/L BUN 18 (9-20) mg/dL Creatinine 1.00 (0.7-1.3) mg/dL Estim Creat Clear Calc 111 ml/min Estimated GFR > 60 (59 - ) Glucose 67 (65-110) mg/dL Calcium 9.1 (8.4-10.2) mg/dL Urine Color Red H (Yellow) Urine Appearance Turbid H (Clear) Urine pH 5.5 (5.0-9.0) Ur Specific [place] 1.016 (1.001-1.035) Urine Protein 2+ H (Negative) mg/dL Urine Glucose (UA) Negative (Negative) mg/dL Urine Ketones 2+ H (Negative) mg/dL Ur Blood (Man) 3+ H (Negative) Urine Nitrate Negative (Negative) Urine Bilirubin 1+ H (Negative) Urine Urobilinogen 0.2 (<2.0) mg/dL Leukocyte Esterase Rfl 2+ H (Negative) JESUS/UL Urine RBC >100 H (0-2) /hpf Urine WBC 11-20 H (0-3) /hpf Ur Squamous Epith Cells None seen (Few) /hpf Urine Bacteria None seen /hpf Urine Casts 0-2 Imaging Data Radiologist's impression: ITS Impressions Abdomen/Pelvis CT 03/27/24 23:54 IMPRESSION: No acute abdominopelvic process detected. Critical Care Time Critical Care Time Critical Care Time: No Discharge Plan Discharge Clinical Impression: Hematuria Qualifiers: Hematuria type: gross Qualified Code(s): R31.0 - Gross hematuria Patient Disposition: Home, Self-Care Condition: Stable Instructions: Antibiotic Form, Hematuria (ED) Additional Instructions: Return to the ER if you experience fever, abdominal pain with nausea and vomiting, you are unable to keep down liquids or solids, pain or burning with urination, you are unable to urinate, or any other symptoms that are concerning to you Remain well hydrated. Take oral antibiotics as prescribed Follow up with urology for further evaluation. Our Urologist believes [facility] in [place] as well as [place] and [facility] providers should take your insurance Prescriptions: New doxycycline hyclate 100 mg tablet 100 mg PO BID 10 Days Qty: 20 0RF No Action baclofen 10 mg tablet 10 mg PO TID PRN (Reason: muscle spasm) 7 Days Qty: 21 0RF naproxen 500 mg tablet 500 mg PO BID PRN (Reason: pain) 7 Days Qty: 14 0RF ciprofloxacin HCl [Cipro] 500 mg tablet 500 mg PO Q12H Qty: 14 0RF Follow-up/Referrals: PHYSICIAN,[employer] FUNCTIONAL ANALYST [Primary Care Provider] -
[2024-03-28] MEDS: cefTRIAXone 0.5 GM in DEXTROSE 5% IN WATER 50 ML IVPB (02:14)
[2024-03-28 02:36] VITALS: BP 132/67; PULSE 67; RESP 17; O2SAT 99
== END 2024-03-28 02:37 | disposition home or self-care (01) ==
PROVIDERS: Emergency Medicine; Emergency Provider Physician Assistant
DX: R31.0 Gross hematuria (principal)
CPT/HCPCS: 36415; 74176; 80048; 81001; 85025; 87086; 96374; 99284; J0696; J2003